=== PATIENT | female | born 2000 | race Caucasian/White ===

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

== ENCOUNTER 2020-01-16 10:52 | Inpatient (IN) | payer OTHER ==
[2020-01-16] MEDS ORDERED: Ondansetron PF 4 MG/2 ML Vial IVP PRN (11:01)
[2020-01-16] MEDS ORDERED: Butorphanol Tartrate 1 MG/ML VIAL SLOW IVP PRN (11:01)
[2020-01-16] MEDS ORDERED: Ibuprofen 800 MG TAB PO PRN (11:01)
[2020-01-16] MEDS ORDERED: Lidocaine 1% (PF) 30 ML VIAL SC PRN (11:01)
[2020-01-16] MEDS ORDERED: Acetaminophen 500 MG TAB PO PRN (11:01)
[2020-01-16] MEDS ORDERED: hydrALAZINE 20 MG/ML VIAL SLOW IVP PRN ×2 (11:01→18:23)
[2020-01-16] MEDS ORDERED: HYDROcodone/Acetaminophen 5/325 mg Tablet PO PRN ×2 (11:01)
[2020-01-16] MEDS ORDERED: Promethazine HCl 25 MG/ML VIAL IM PRN (11:01)
--- NOTE | 2020-01-16 11:10 | PDOC.LDHP ---
Labor and Delivery H&P Chief complaint: contractions HPI: 19 yo WF presents c/o UCs since early this AM. Denies ROM. Current gestational age (weeks): 39 Due date: 01/19/20 Dating criteria: last menstrual period Grav: 2 Para: 0 OB History Details: PNC with Dr. Dumas w/o reported complications. Current complications: none Abnormal US findings: No Past Medical History: anxiety Current medications: pre-mahad vitamins Previous surgical history: other (T&A) Allergies/Adverse Reactions: Allergies Allergy/AdvReac Type Severity Reaction Status Date / Time No Known Allergies Allergy Verified 12/05/19 21:28 Social history: none - Physical Exam Vital signs reviewed and normal: yes General: breathing through contractions Heart: RRR Lungs: nonlabored breathing Abdomen: gravid Extremeties: trace edema FHT: category 1 - Vaginal Exam cm dilated: 8 Effacement: 90% Station: 0 - OB Labs GBS: negative - Assessment L&D Assessment: term patient in labor - Plan Plan: admit to L&D, informed consent obtained, anesthesia consult for pain management
[2020-01-16] MEDS ORDERED: NS / Oxytocin 40 units/1000ml 1,000 ML IV SCH ×2 (11:15→18:23)
[2020-01-16] MEDS ORDERED: Lactated Ringer's 1,000 ML IV SCH (11:15)
[2020-01-16] MEDS ORDERED: NS w/ Oxytocin 10 units 500 ML IV SCH (11:15)
[2020-01-16 11:28] VITALS: BMI 31.3
[2020-01-16] MEDS ORDERED: Fentanyl 4 mcg/Bup 0.1% Cadd 100 ML in Premix Bag 1 BAG EPIDURAL SCH (11:30)
[2020-01-16 11:38] LABS: Mean Corpuscular HGB CONC 33.9 g/dL (32.0-36.0); Mean Corpuscular Hemoglobin 28.4 pg (25.0-35.0); Mean Platelet Volume 7.9 fL (7.4-10.4); Platelet Count 271 thou/uL (130-400); RBC Distribution Width 11.4 % (11.5-14.5); Red Blood Cell (RBC) Count 4.21 mill/uL (4.00-5.20); White Blood Cell (WBC) Count 13.4 thou/uL (4.8-10.8)
[2020-01-16 12:21] LABS: HBSAg Index 0.58 S/CO (0-0.99); Hep B Surf Ag Non-Reactive S/CO (NonReactive); Syphilis Antibody Nonreactive (Nonreactive); Syphilis Antibody Index 0.02 S/CO (<1.00 Non-Reactive)
--- NOTE | 2020-01-16 12:39 | PDOC.EVN ---
Event Note - Event Note Event Note: Comfortable with epidural SVE= 9/c/0 vtx FHTs stable. UCs q 2-4 mins. A/P; Progressing, expect
[2020-01-16] MEDS ORDERED: Bupivacaine 0.25% HCL 30 ML VIAL ONE (13:52)
[2020-01-16] MEDS: NS / Oxytocin 40 units/1000ml 1,000 ML IV PRN ×2 (14:34→15:40)
--- NOTE | 2020-01-16 15:13 | PDOC.OPDEL ---
OB Operative/Delivery Note Delivery Dr/Surgeon: Jonathan Assist: Ruben Pre-Delivery Diagnosis: active labor Procedure/Post Delivery Dx: spontaneous vaginal delivery Weeks gestation: 39 Anesthesia: epidural - Additional Findings/Plan Placenta delivered: spontaneous Repaired Obstetrical Laceration: 2nd degree Estimated blood loss: 300 cc, QBL pending Compilations/Other Findings: RSVD of viable male OA. Apgars 4/8. Placenta intact Hilda. Small 2* MLE and R labial lacerations repaired in layers with chromic. Small replaced, to stay until AM. To recover in L&D. Post delivery plan: routine recovery
[2020-01-16 15:58] LABS: SARS-CoV-2 NAA Rapid Test Not Detected (NotDetected)
[2020-01-16] MEDS ORDERED: Milk Of Magnesia 30 ML UDCUP PO PRN (18:23)
[2020-01-16] MEDS ORDERED: Bisacodyl 10 MG SUPP PR PRN (18:23)
[2020-01-16] MEDS ORDERED: Acetaminophen/Codeine 30-300mg Tablet PO PRN (18:23)
[2020-01-16] MEDS ORDERED: Ferrous Sulfate 325 MG TAB PO SCH (18:30)
[2020-01-16] MEDS: Docusate Calcium (SURFAK) 240 MG CAP PO SCH (21:58)
[2020-01-16] MEDS: Ibuprofen 800 MG TAB PO SCH (21:59)
--- NOTE | 2020-01-17 05:20 | PDOC.PP ---
Post Progress Note Post Day #: PPD1 Subjective: Resting, no c/o. PO intake tolerated: yes Flatus: yes Ambulation: yes Vital Signs (12 hours) Temp Pulse Resp BP Pulse Ox 01/16/20 20:00 98.4 F 97 18 135/79 99 01/16/20 19:20 98.4 F 97 16 135/79 100 01/16/20 18:20 98.5 F 69 16 128/88 98 Weight Weight 87.997 kg - Physical Examination General: NAD Respiratory: non-labored breathing Neurological: no gross focal deficits Psychiatric: normal affect Result Diagrams: 01/16/20 11:30 Additional Labs: Post Labs Hep Bs Antigen Non-Reactive S/CO (NonReactive) 01/16/20 11:30 Blood Type B POSITIVE 01/16/20 11:30 - Assessment/Plan Doing well s/p CECI humphries Routine PP care
[2020-01-17] MEDS: Ibuprofen 800 MG TAB PO SCH ×4 (05:59→21:27)
[2020-01-17] MEDS: Lactated Ringer's 1,000 ML IV SCH ×3 (07:37→21:28)
[2020-01-17] MEDS: Ferrous Sulfate 325 MG TAB PO SCH ×2 (08:06→16:22)
[2020-01-17] MEDS: Prenatal Vitamin 1 TAB PO SCH (08:27)
[2020-01-17] MEDS: Docusate Calcium (SURFAK) 240 MG CAP PO SCH ×2 (08:27→21:27)
[2020-01-17] MEDS ORDERED: Adacel (T-DAP) 0.5 ML SYRINGE IM ONE (09:00)
[2020-01-17] MEDS ORDERED: FLU VACC QS2020-21(6MOS UP)/PF 60 MCG/0.5 ML SYRINGE IM ONE (09:00)
[2020-01-18] MEDS: Lactated Ringer's 1,000 ML IV SCH ×2 (05:31→12:00)
[2020-01-18] MEDS: Ibuprofen 800 MG TAB PO SCH (05:32)
--- NOTE | 2020-01-18 06:52 | PDOC.PP ---
Post Progress Note Post Day #: 2 Subjective: on 01/15 vaginal pain well controlled. Infant still in NICU and anticipates D/c home in 2-3 days. light lochia amount of period. ambulating to NICU and back yesterday tolerating diet well. PO intake tolerated: yes Flatus: yes Ambulation: yes Vital Signs (12 hours) Temp Pulse Resp BP Pulse Ox 01/17/20 20:00 98.2 F 75 18 106/55 L 100 Weight Weight 87.997 kg - Physical Examination General: NAD Cardiovascular: no m/r/g, RRR Respiratory: clear to auscultation bilaterally, non-labored breathing Abdominal: + bowel sounds, lochia, no distention, appropriately TTP Fundus firm & at: just below umbilicus Extremities: negative homans (B) Skin: no rash Neurological: no gross focal deficits Psychiatric: A&Ox3, normal affect Result Diagrams: 01/16/20 11:30 Additional Labs: Post Labs Hep Bs Antigen Non-Reactive S/CO (NonReactive) 01/16/20 11:30 Blood Type B POSITIVE 01/16/20 11:30 - Assessment/Plan 1. PP day #2 - pain well controlled, continue motrin and tylenol - plan B&B today as infant in NICU. Nursing staff notified and have appropriate rooms for this. Dispo: d/c today to B&B.
[2020-01-18] MEDS: Prenatal Vitamin 1 TAB PO SCH (08:49)
[2020-01-18] MEDS: Ferrous Sulfate 325 MG TAB PO SCH (08:49)
[2020-01-18] MEDS: Docusate Calcium (SURFAK) 240 MG CAP PO SCH (08:49)
[2020-01-18 09:31] VITALS: BP 137/79; TEMP 98.1
== END 2020-01-18 13:47 | disposition home or self-care (01) | DRG 807 ==
LOC: L&D/OP 10:52 → L&D 11:02 → 3SW 18:44
PROVIDERS: ADMIT Obstetrics & Gynecology; ATTEND Obstetrics & Gynecology
PROC: 10E0XZZ Delivery of Products of Conception, External Approach (ICD-10-PCS; principal; 2020-01-16)
PROC: 0KQM0ZZ Repair Perineum Muscle, Open Approach (ICD-10-PCS; 2020-01-16)
DX: O70.1 Second degree perineal laceration during delivery (principal); Z37.0 Single live birth; Z20.828 Contact with and (suspected) exposure to other viral communicable diseases; Z3A.39 39 weeks gestation of pregnancy
CPT/HCPCS: 36415; 51702; 85027; 86780; 86850; 86900; 86901; 87340; S0020; U0002

== ENCOUNTER 2024-02-09 14:31 | Emergency (ER) | payer OTHER, SELFPAY ==
[2024-02-09 14:58] LABS: #Basophils 0.04 10x3/uL (0.0-0.2); %Basophils 0.4 % (0.0-1.0); %Eosinophils 0.5 % (0.0-10.0); %Lymphocytes 19.9 % (21.0-51.0); %Monocytes 6.1 % (0.0-10.0); %Neutrophils 72.7 % (42.0-75.0); Hematocrit 44.5 % (36.0-47.0); Hemoglobin 14.7 g/dL (12.0-16.0); Mean Corpuscular Hemoglobin 28.2 pg (27.0-31.0); Mean Corpuscular Volume 85.2 fL (78.0-98.0); Mean Platelet Volume 9.3 fL (7.4-10.4); Platelet Count 386 10x3/uL (130-400); RBC Distribution Width 12.5 % (11.5-14.5); Red Blood Cell (RBC) Count 5.22 mill/uL (4.20-5.40)
[2024-02-09] MEDS ORDERED: Ondansetron PF 4 MG/2 ML Vial ONE (14:59)
[2024-02-09] MEDS ORDERED: Morphine 4 MG/ML VIAL ONE (14:59)
[2024-02-09 15:06] LABS: BHCG - Serum Negative (NEGATIVE); Pregs Control Bar Appear? YES (CONTROL BAR)
[2024-02-09 15:07] LABS: Pregs Control Background? CLEAR/WHITE (CLR/WHITE)
[2024-02-09 15:16] LABS: ALT (SGPT) 12 U/L (8-55); AST (SGOT) 16 U/L (5-34); Albumin 4.6 g/dL (3.5-5.0); Alkaline Phosphatase 69 U/L (40-110); Anion Gap 18 mmol/L (10-20); BUN (Urea Nitrogen) 6 mg/dL (7.0-18.7); Bilirubin, Total 1.4 mg/dL (0.2-1.2); Calc. Creatinine Clearance 0 mL/min (70-130); Calcium 9.6 mg/dL (7.8-10.44); Carbon Dioxide 21 mmol/L (22-29); Chloride 105 mmol/L (98-107); Estimated GFR 100; Globulin 3.8 g/dL (2.4-3.5); Glucose 87 mg/dL (70-105); Potassium 3.5 mmol/L (3.5-5.1); Protein, Total 8.4 g/dL (6.0-8.3); Sodium 140 mmol/L (136-145)
[2024-02-09 15:40] LABS: Bacteria/HPF None Seen HPF (None Seen); Bilirubin Negative (Negative); Blood, Urine 2+ (Negative); CAUTI Indications for Culture Pelvic or flank pain; Clarity Clear (Clear); Glucose, Urine (Dipstick) Normal (Negative); Ketone, Urine Negative (Negative); Leukocyte Negative Leu/uL (Negative); Nitrite Negative (Negative); Protein, Urine (Dipstick) Negative (Neg-Trace); RBC/HPF 0-3 HPF (0-3); Specific Gravity, Urine 1.008 (1.002-1.036); Squamous Epithelial 0-3 HPF (0-3); Urobilinogen Normal mg/dL (Less than 2); WBC/HPF 0-3 HPF (0-3)
[2024-02-09 15:45] LABS: Pregnancy Test - Urine (BHCG) Negative (Negative); Pregu Control Background? CLEAR/WHITE (CLR/WHITE); Pregu Control Bar Appear? YES (CONTROL BAR); Specific Gravity 1.008 (1.002-1.036); Urine Culture Reflex No No
== END 2024-02-09 18:03 | disposition home or self-care (01) ==
LOC: ERS 14:31
DX: L02.211 Cutaneous abscess of abdominal wall (principal)
CPT/HCPCS: 36415; 74177; 76705; 80053; 81001; 81025; 84703; 85025; 96374; 96375; J2272; J2405